=== PATIENT | male | born 1945 | race Caucasian/White ===

== ENCOUNTER 2022-12-05 08:43 | Emergency (ER) | payer OTHER ==
[~2022-12-05] VITALS: Ht 177.8 cm; Wt 83.9 kg
[2022-12-05 08:43] VITALS: BP_SYST 158; PULSE 86; RESP 18; TEMP 98.1; O2SAT 98
[2022-12-05 10:02] VITALS: BP_SYST 158; PULSE 74; RESP 16; TEMP 97.7; O2SAT 97
== END 2022-12-05 10:00 | disposition home or self-care (01) ==
LOC: SED 08:43
DX: R60.0 Localized edema (principal); I10 Essential (primary) hypertension; Z79.899 Other long term (current) drug therapy
CPT/HCPCS: 99281

== ENCOUNTER 2023-03-03 08:00 | Outpatient (CLI) | payer OTHER | END 2023-03-03 16:45 | disposition home or self-care (01) | LOC: SLB 08:00 → EDSTATUS 03-11 09:00 | PROVIDERS: ATTEND Surgery | DX: Z01.818 Encounter for other preprocedural examination (principal); C48.0 Malignant neoplasm of retroperitoneum; R94.31 Abnormal electrocardiogram [ECG] [EKG] | CPT/HCPCS: 87081; 93005 ==

== ENCOUNTER 2023-03-25 09:58 | Day surgery (SDC) | payer OTHER ==
[~2023-03-25] VITALS: Ht 177.8 cm; Wt 79.4 kg
[~2023-03-25 09:58] MED LIST: CEFAZOLIN SOD 2 GM in D5W 50 ML IV ONE
[2023-03-25] MEDS ORDERED: MIDAZOLAM HCL 2 MG/2 ML VIAL (VERSED) ONE (11:25)
[2023-03-25] MEDS ORDERED: fentaNYL CITRATE/PF 100 MCG/2 ML AMP ONE (11:25)
[2023-03-25] MEDS ORDERED: LIDOCAINE 1% 10 MG/ML, 20 ML MDV ONE (12:10)
[2023-03-25] MEDS ORDERED: NS 1000 ML IV.SOLN IV ONE (12:10)
[2023-03-25] MEDS ORDERED: NS 50 ML BAG IV ONE (12:10)
[2023-03-25] MEDS ORDERED: NALOXONE HCL 0.4 MG/ML AMP (NARCAN) IVP PRN (13:15)
[2023-03-25] MEDS ORDERED: ONDANSETRON HCL 4 MG/2 ML VIAL IVP PRN ×2 (13:15→14:15)
[2023-03-25] MEDS ORDERED: hydrALAZINE HCL 20 MG/ML VIAL IV PRN (13:15)
[2023-03-25] MEDS ORDERED: HYDROmorphone 1 MG/ML INJ. CARTRIDGE IVP PRN ×3 (13:15)
[2023-03-25] MEDS ORDERED: ACET1TAB93 PO (14:13)
[2023-03-25] MEDS ORDERED: MORPHINE 4 MG INJ. 4 MG/ML VIAL IVP PRN (14:15)
[2023-03-25] MEDS ORDERED: HYDROcodone/ACETAMIN 5-325 MG TAB (NORCO/ VICODIN) PO PRN (14:15)
[2023-03-25 19:08] VITALS: O2SAT 100
[2023-03-25 19:57] VITALS: BP_SYST 115; PULSE 69; RESP 16
== END 2023-03-25 16:20 | disposition home or self-care (01) ==
LOC: SMU 09:58 → SDS 09:58
PROVIDERS: ATTEND Surgery
DX: C48.0 Malignant neoplasm of retroperitoneum (principal); I25.10 Atherosclerotic heart disease of native coronary artery without angina pectoris; I10 Essential (primary) hypertension; K21.9 Gastro-esophageal reflux disease without esophagitis; E78.5 Hyperlipidemia, unspecified; Z95.1 Presence of aortocoronary bypass graft; Z79.899 Other long term (current) drug therapy
CPT/HCPCS: 36561; 71045; 77001; 76937; J0690; J2001; J3465; J3010; J7060; J7030; C1788; 76000

== ENCOUNTER 2023-05-10 13:57 | Emergency (ER) | payer OTHER ==
[~2023-05-10] VITALS: Ht 177.8 cm; Wt 83.9 kg
[2023-05-10 14:09] VITALS: BP_SYST 106; PULSE 78; RESP 18; TEMP 98.1; O2SAT 98
[2023-05-10 15:04] LABS: HEMATOCRIT 33.1 % (36-54); HEMOGLOBIN 11.5 g/dL (14.0-18.0); MEAN CORPUSCULAR HEMOGLOBIN 34 pg (27-31); MEAN CORPUSCULAR HGB CONC 35 % (32-36); MEAN CORPUSCULAR VOLUME 98 fL (79.0-98.0); RED BLOOD CELL COUNT(AUTO) 3.36 MIL/uL (4.2-6.2); RED CELL DISTRIBUTION WIDTH 18.6 % (9.0-15.0); WHITE BLOOD COUNT (AUTO) 10.2 K/uL (4.8-10.8)
[2023-05-10 15:14] LABS: ANION GAP 8 (5-15); CALCIUM 9.2 mg/dL (8.4-11.0); CARBON DIOXIDE 29 mmol/L (23-29); CHLORIDE 106 mmol/L (98-107); CREATININE 1.52 mg/dL (0.55-1.30); GLUCOSE 102 mg/dL (74-106); SODIUM SERUM 143 mmol/L (136-145); UREA NITROGEN, BLOOD 15 mg/dL (8-21)
[2023-05-10 15:22] LABS: PROTHROMBIN TIME 9.9 SECS (9.5-12.5)
[2023-05-10 15:25] LABS: PLATELET COUNT (AUTO) 84 K/uL (130-430)
[2023-05-10 15:26] LABS: ANISOCYTOSIS 1+; ATYPICAL LYMPHOCYTES % 18 % (0-0); BAND % (MANUAL) 0 % (0-6); BASOPHILS % (MANUAL) 0 % (0-2); EOSINOPHILS % (MANUAL) 1 % (0-7); LYMPHOCYTES % (MANUAL) 34 % (20-46); MONOCYTES % (MANUAL) 6 % (0-11); PLATELET ESTIMATE DECREASED (ADEQUATE)
[2023-05-10 15:29] LABS: ALANINE AMINOTRANSFERASE 29 U/L (12-78); ALBUMIN 3.9 g/dL (3.4-4.8); AMYLASE 39 U/L (0-100); ASPARTATE AMINOTRANSFERASE 18 U/L (10-37); BILIRUBIN,DIRECT 0.2 mg/dL (0.0-0.3); LIPASE 24 U/L (16-77); TOTAL BILIRUBIN 0.8 mg/dL (0.0-1.0); TOTAL PROTEIN, SERUM 7.1 g/dL (6.4-8.3)
[2023-05-10 15:30] LABS: BILIRUBIN,URINE 2+ (NEGATIVE); BLOOD, URINE 3+ (NEGATIVE); CLARITY/URINE CLOUDY (CLEAR); COLOR,URINE BROWN (YELLOW); GLUCOSE,URINE NEGATIVE (NEGATIVE); KETONES,URINE TRACE (NEGATIVE); LEUKOCYTE ESTERASE ,URINE TRACE (NEGATIVE); NITRITE, URINE NEGATIVE (NEGATIVE); PH,URINE 6.5 (5.0-8.0); PROTEIN URINE 2+ (NEGATIVE)
[2023-05-10 15:42] LABS: RBC,URINE >100 /HPF (0-3); WBC,URINE >100 /HPF (0-3)
[2023-05-10 15:43] LABS: BACTERIA,URINE FEW /HPF (None Seen)
[2023-05-10] MEDS ORDERED: NITR-85 PO (16:40)
[2023-05-10 17:00] VITALS: BP_SYST 106; PULSE 78; RESP 18; TEMP 98.1; O2SAT 98
== END 2023-05-10 17:00 | disposition home or self-care (01) ==
LOC: SED 13:57
DX: R31.9 Hematuria, unspecified (principal); I10 Essential (primary) hypertension; Z79.899 Other long term (current) drug therapy
CPT/HCPCS: 36415; 76376; 80048; 80076; 81000; 81001; 81015; 82150; 83605; 83690; 85007; 85027; 85610; 85730; 87086; 99284

== ENCOUNTER 2023-05-14 12:51 | Emergency (ER) | payer OTHER ==
[~2023-05-14] VITALS: Ht 177.8 cm; Wt 83.9 kg
[~2023-05-14 12:51] MED LIST changes: -CEFAZOLIN SOD 2 GM in D5W 50 ML IV ONE; +NITR-85 PO
[2023-05-14 13:01] VITALS: BP_SYST 131; PULSE 86; RESP 18; TEMP 98.2; O2SAT 98
[2023-05-14 16:28] LABS: BILIRUBIN,URINE NEGATIVE (NEGATIVE); BLOOD, URINE 2+ (NEGATIVE); CLARITY/URINE CLEAR (CLEAR); COLOR,URINE YELLOW (YELLOW); GLUCOSE,URINE NEGATIVE (NEGATIVE); KETONES,URINE NEGATIVE (NEGATIVE); LEUKOCYTE ESTERASE ,URINE NEGATIVE (NEGATIVE); NITRITE, URINE NEGATIVE (NEGATIVE); PROTEIN URINE NEGATIVE (NEGATIVE); UROBILINOGEN,URINE 0.2 (0.2-1.0)
[2023-05-14 16:35] LABS: BACTERIA,URINE RARE /HPF (None Seen); MUCUS,URINE None Seen /LPF (None Seen); RBC,URINE 0-3 /HPF (0-3); WBC,URINE 0-3 /HPF (0-3)
[2023-05-14 16:44] LABS: ANION GAP 9 (5-15); CALCIUM 9.4 mg/dL (8.4-11.0); CARBON DIOXIDE 28 mmol/L (23-29); CHLORIDE 104 mmol/L (98-107); CREATININE 1.21 mg/dL (0.55-1.30); GLUCOSE 85 mg/dL (74-106); POTASSIUM 4.2 mmol/L (3.5-5.1); SODIUM SERUM 141 mmol/L (136-145); UREA NITROGEN, BLOOD 13 mg/dL (8-21)
[2023-05-14 16:48] LABS: ALANINE AMINOTRANSFERASE 33 U/L (12-78); ALBUMIN 4.1 g/dL (3.4-4.8); ASPARTATE AMINOTRANSFERASE 23 U/L (10-37); BILIRUBIN,DIRECT 0.2 mg/dL (0.0-0.3); TOTAL BILIRUBIN 0.8 mg/dL (0.0-1.0); TOTAL PROTEIN, SERUM 7.4 g/dL (6.4-8.3)
[2023-05-14 17:48] LABS: BASOPHILS % (AUTO) 0.5 % (0.0-2.0); EOSINOPHILS # (AUTO) 0.1 K/uL (0.0-0.4); EOSINOPHILS % (AUTO) 1.1 % (0.0-4.0); HEMATOCRIT 33.4 % (36-54); HEMOGLOBIN 11.8 g/dL (14.0-18.0); LYMPHOCYTES # (AUTO) 5.6 K/uL (1.0-5.5); LYMPHOCYTES % (AUTO) 54.3 % (20.5-51.5); MEAN CORPUSCULAR HEMOGLOBIN 35 pg (27-31); MEAN CORPUSCULAR HGB CONC 35 % (32-36); MEAN CORPUSCULAR VOLUME 99 fL (79.0-98.0); MONOCYTES # (AUTO) 0.7 K/uL (0.0-1.0); MONOCYTES % (AUTO) 6.7 % (1.7-9.3); NEUTROPHILS # (AUTO) 3.9 K/uL (1.8-7.7); NEUTROPHILS % (AUTO) 37.4 % (40.0-70.0); PLATELET COUNT (AUTO) 106 K/uL (130-430); RED BLOOD CELL COUNT(AUTO) 3.39 MIL/uL (4.2-6.2); RED CELL DISTRIBUTION WIDTH 17.6 % (9.0-15.0); WHITE BLOOD COUNT (AUTO) 10.4 K/uL (4.8-10.8)
[2023-05-14 18:44] VITALS: BP_SYST 138; PULSE 78; RESP 18; TEMP 98.2; O2SAT 98
== END 2023-05-14 18:44 | disposition home or self-care (01) ==
LOC: SED 12:51
DX: R31.9 Hematuria, unspecified (principal); I10 Essential (primary) hypertension; Z79.899 Other long term (current) drug therapy
CPT/HCPCS: 36415; 80048; 80076; 81000; 81001; 81015; 85025; 99283

== ENCOUNTER 2023-07-18 18:28 | Inpatient (IN) | payer OTHER ==
[~2023-07-18] VITALS: Ht 177.8 cm; Wt 82.1 kg
[2023-07-18 18:30] VITALS: BP_SYST 137; PULSE 131; RESP 18; TEMP 97.8; O2SAT 94
[2023-07-18 19:23] LABS: BASOPHILS % (AUTO) 0.3 % (0.0-2.0); EOSINOPHILS # (AUTO) 0.1 K/uL (0.0-0.4); EOSINOPHILS % (AUTO) 0.5 % (0.0-4.0); HEMATOCRIT 40.2 % (36-54); LYMPHOCYTES # (AUTO) 4.8 K/uL (1.0-5.5); LYMPHOCYTES % (AUTO) 40.3 % (20.5-51.5); MEAN CORPUSCULAR HEMOGLOBIN 32 pg (27-31); MEAN CORPUSCULAR HGB CONC 35 % (32-36); MEAN CORPUSCULAR VOLUME 92 fL (79.0-98.0); MONOCYTES # (AUTO) 0.3 K/uL (0.0-1.0); MONOCYTES % (AUTO) 2.2 % (1.7-9.3); NEUTROPHILS # (AUTO) 6.8 K/uL (1.8-7.7); NEUTROPHILS % (AUTO) 56.7 % (40.0-70.0); PLATELET COUNT (AUTO) 132 K/uL (130-430); RED BLOOD CELL COUNT(AUTO) 4.36 MIL/uL (4.2-6.2); RED CELL DISTRIBUTION WIDTH 13.3 % (9.0-15.0)
[2023-07-18] MEDS: NACL 0.9% 1,000 ML IV ONE ×2 (19:27→23:04)
[2023-07-18 19:54] LABS: ANION GAP 13 (5-15); CALCIUM 9.6 mg/dL (8.4-11.0); CARBON DIOXIDE 23 mmol/L (23-29); CHLORIDE 103 mmol/L (98-107); CREATININE 1.44 mg/dL (0.55-1.30); GLUCOSE 112 mg/dL (74-106); POTASSIUM 4.4 mmol/L (3.5-5.1); SODIUM SERUM 139 mmol/L (136-145); UREA NITROGEN, BLOOD 26 mg/dL (8-21)
[2023-07-18 19:58] LABS: PROTHROMBIN TIME 10.7 SECS (9.5-12.5)
[2023-07-18 20:01] LABS: ALANINE AMINOTRANSFERASE 20 U/L (12-78); ALBUMIN 4.5 g/dL (3.4-4.8); ASPARTATE AMINOTRANSFERASE 25 U/L (10-37); BILIRUBIN,DIRECT 0.4 mg/dL (0.0-0.3); TOTAL BILIRUBIN 1.8 mg/dL (0.0-1.0); TOTAL PROTEIN, SERUM 8.3 g/dL (6.4-8.3)
[2023-07-18] MEDS: ONDANSETRON HCL 4 MG/2 ML VIAL IVP ONE (20:18)
[2023-07-18] MEDS ORDERED: cefTRIAXone 1 GM VIAL ONE (20:54)
[2023-07-18] MEDS ORDERED: AZITHROMYCIN 500 MG/VIAL (ZITHROMAX) IV ONE (20:54)
[2023-07-18] MEDS: cefTRIAXone 1 GM in D5W 50 ML IV ONE (20:59)
[2023-07-18] MEDS: AZITHROMYCIN 500 MG in NS 250 ML IV ONE (21:12)
[2023-07-18] MEDS ORDERED: MORPHINE 2 MG/ML INJ. SYRINGE IVP PRN (21:15)
[2023-07-18] MEDS ORDERED: ACETAMINOPHEN 325 MG TABLET PO PRN (21:15)
[2023-07-18] MEDS ORDERED: ONDANSETRON HCL 4 MG/2 ML VIAL IVP PRN (21:15)
[2023-07-18] MEDS ORDERED: IPRATROPIUM BROM 0.5 MG/2.5 ML VIAL.NEB (ATROVENT) INH PRN (21:15)
[2023-07-18] MEDS ORDERED: HYDROcodone/ACETAMIN 5-325 MG TAB (NORCO/ VICODIN) PO PRN (21:15)
[2023-07-18] MEDS ORDERED: HYDROcodone/ACETAMIN 10-325 MG TAB PO PRN (21:15)
[2023-07-18 23:53] LABS: BILIRUBIN,URINE 1+ (NEGATIVE); BLOOD, URINE 3+ (NEGATIVE); CLARITY/URINE SL CLOUDY (CLEAR); COLOR,URINE YELLOW (YELLOW); GLUCOSE,URINE NEGATIVE (NEGATIVE); KETONES,URINE 2+ (NEGATIVE); LEUKOCYTE ESTERASE ,URINE NEGATIVE (NEGATIVE); NITRITE, URINE NEGATIVE (NEGATIVE); PROTEIN URINE 1+ (NEGATIVE); UROBILINOGEN,URINE 0.2 (0.2-1.0)
[2023-07-19 00:13] LABS: RBC,URINE 20-50 /HPF (0-3)
[2023-07-19 00:19] LABS: BACTERIA,URINE RARE /HPF (None Seen); WBC,URINE 0-3 /HPF (0-3)
[2023-07-19] MEDS ORDERED: ATORVASTATIN 20 MG TABLET PO SCH (00:45)
[2023-07-19] MEDS: ASPIRIN 81 MG TAB.CHEW PO ONE (01:28)
[2023-07-19] MEDS ORDERED: CLOPIDOGREL BISULFATE 75 MG TABLET PO ONE (01:45)
[2023-07-19] MEDS ORDERED: METO25TA6 PO (01:47)
[2023-07-19] MEDS ORDERED: ATOR40TA68 PO (01:47)
[2023-07-19] MEDS ORDERED: MEGE20TA3 (01:47)
[2023-07-19] MEDS ORDERED: BACL10TA PO (01:47)
[2023-07-19] MEDS ORDERED: TAMS0.4C96 PO (01:47)
[2023-07-19] MEDS ORDERED: EZET10TA30 PO (01:47)
[2023-07-19] MEDS ORDERED: iohexoL 350 mgI/mL, 100 ML INFUS..BTL IV ONE (02:07)
[2023-07-19 07:41] LABS: BASOPHILS % (AUTO) 0.2 % (0.0-2.0); EOSINOPHILS % (AUTO) 0.1 % (0.0-4.0); HEMATOCRIT 40.6 % (36-54); LYMPHOCYTES # (AUTO) 3.4 K/uL (1.0-5.5); LYMPHOCYTES % (AUTO) 27.5 % (20.5-51.5); MEAN CORPUSCULAR HEMOGLOBIN 33 pg (27-31); MEAN CORPUSCULAR HGB CONC 35 % (32-36); MEAN CORPUSCULAR VOLUME 94 fL (79.0-98.0); MONOCYTES # (AUTO) 0.3 K/uL (0.0-1.0); MONOCYTES % (AUTO) 2.4 % (1.7-9.3); NEUTROPHILS # (AUTO) 8.5 K/uL (1.8-7.7); NEUTROPHILS % (AUTO) 69.8 % (40.0-70.0); PLATELET COUNT (AUTO) 103 K/uL (130-430); RED CELL DISTRIBUTION WIDTH 13.3 % (9.0-15.0); WHITE BLOOD COUNT (AUTO) 12.2 K/uL (4.8-10.8)
[2023-07-19 08:17] LABS: ALANINE AMINOTRANSFERASE 24 U/L (12-78); ALBUMIN 4.3 g/dL (3.4-4.8); ANION GAP 13 (5-15); ASPARTATE AMINOTRANSFERASE 28 U/L (10-37); CALCIUM 9.6 mg/dL (8.4-11.0); CARBON DIOXIDE 23 mmol/L (23-29); CHLORIDE 104 mmol/L (98-107); CREATININE 1.21 mg/dL (0.55-1.30); GLUCOSE 94 mg/dL (74-106); POTASSIUM 4.5 mmol/L (3.5-5.1); SODIUM SERUM 140 mmol/L (136-145); TOTAL BILIRUBIN 1.5 mg/dL (0.0-1.0); TOTAL PROTEIN, SERUM 8.1 g/dL (6.4-8.3); UREA NITROGEN, BLOOD 24 mg/dL (8-21)
[2023-07-19] MEDS ORDERED: AZITHROMYCIN 500 MG in NS 250 ML IV SCH (09:00)
[2023-07-19] MEDS ORDERED: cefTRIAXone 1 GM in D5W 50 ML IV SCH (09:00)
[2023-07-19 10:23] VITALS: BP_SYST 156; PULSE 118; RESP 16; TEMP 97.5; O2SAT 94
[2023-07-19 10:36] VITALS: BP_SYST 151; PULSE 118; RESP 16; TEMP 97.5; O2SAT 94
[2023-07-19] MEDS: 0.45% NS 500 ML IV ONE (11:15)
[2023-07-19 11:37] VITALS: BP_SYST 151; PULSE 89; RESP 15; TEMP 97.1; O2SAT 93
[2023-07-19] MEDS ORDERED: DIATR MEGLU/DIATRIZ SOD 30 ML SOLUTION PO ONE (11:40)
[2023-07-19] MEDS: ONDANSETRON HCL 4 MG/2 ML VIAL IVP PRN (11:41)
[2023-07-19] MEDS: PANTOPRAZOLE SODIUM 40 MG/VIAL (PROTONIX) IVP ONE (11:43)
[2023-07-19 15:26] VITALS: BP_SYST 126; PULSE 113; RESP 16; TEMP 98; O2SAT 94
[2023-07-19 20:00] VITALS: BP_SYST 136; PULSE 97; RESP 17; TEMP 98.5; O2SAT 98
[2023-07-19] MEDS: PANTOPRAZOLE SODIUM 40 MG/VIAL (PROTONIX) IVP SCH (20:47)
[2023-07-19] MEDS: CEFTRIAXONE SOD 1 GM/ D5W 50 ML IV SCH (20:48)
[2023-07-19] MEDS: AZITHROMYCIN 500 MG in NS 250 ML IV SCH (22:25)
[2023-07-20] VITALS: BP_SYST 129; PULSE 95; RESP 16; TEMP 98.2; O2SAT 97
[2023-07-20 07:00] LABS: BASOPHILS % (AUTO) 0.2 % (0.0-2.0); EOSINOPHILS # (AUTO) 0.1 K/uL (0.0-0.4); EOSINOPHILS % (AUTO) 1.1 % (0.0-4.0); HEMATOCRIT 35.7 % (36-54); HEMOGLOBIN 12.4 g/dL (14.0-18.0); LYMPHOCYTES # (AUTO) 4.9 K/uL (1.0-5.5); LYMPHOCYTES % (AUTO) 38.8 % (20.5-51.5); MEAN CORPUSCULAR HEMOGLOBIN 32 pg (27-31); MEAN CORPUSCULAR HGB CONC 35 % (32-36); MEAN CORPUSCULAR VOLUME 93 fL (79.0-98.0); MONOCYTES # (AUTO) 0.3 K/uL (0.0-1.0); MONOCYTES % (AUTO) 2.4 % (1.7-9.3); NEUTROPHILS # (AUTO) 7.3 K/uL (1.8-7.7); NEUTROPHILS % (AUTO) 57.5 % (40.0-70.0); PLATELET COUNT (AUTO) 100 K/uL (130-430); RED BLOOD CELL COUNT(AUTO) 3.83 MIL/uL (4.2-6.2); RED CELL DISTRIBUTION WIDTH 13.4 % (9.0-15.0); WHITE BLOOD COUNT (AUTO) 12.6 K/uL (4.8-10.8)
[2023-07-20 08:25] VITALS: BP_SYST 147; PULSE 94; RESP 20; TEMP 98; O2SAT 100
[2023-07-20 08:55] LABS: CHLORIDE 106 mmol/L (98-107); POTASSIUM 4.2 mmol/L (3.5-5.1); SODIUM SERUM 141 mmol/L (136-145)
[2023-07-20 08:56] LABS: ANION GAP 10 (5-15); CALCIUM 8.7 mg/dL (8.4-11.0); CARBON DIOXIDE 25 mmol/L (23-29); GLUCOSE 89 mg/dL (74-106); UREA NITROGEN, BLOOD 25 mg/dL (8-21)
[2023-07-20 09:30] VITALS: O2SAT 100
[2023-07-20] MEDS: 0.45% NS 1,000 ML IV SCH (10:30)
[2023-07-20 11:07] VITALS: BP_SYST 125; PULSE 94; RESP 16; TEMP 97.1; O2SAT 97
[2023-07-20 15:24] VITALS: BP_SYST 147; PULSE 91; RESP 17; TEMP 96.9; O2SAT 97
[2023-07-20 20:00] VITALS: BP_SYST 146; PULSE 92; RESP 16; TEMP 98.7; O2SAT 98
[2023-07-20] MEDS: METOCLOPRAMIDE HCL 10 MG/2 ML VIAL IVP SCH (20:59)
[2023-07-21] VITALS: BP_SYST 143; PULSE 90; RESP 16; TEMP 97.9; O2SAT 97
[2023-07-21 05:27] LABS: ANION GAP 9 (5-15); CALCIUM 8.2 mg/dL (8.4-11.0); CARBON DIOXIDE 26 mmol/L (23-29); CHLORIDE 105 mmol/L (98-107); CREATININE 0.96 mg/dL (0.55-1.30); GLUCOSE 79 mg/dL (74-106); POTASSIUM 3.8 mmol/L (3.5-5.1); SODIUM SERUM 140 mmol/L (136-145); UREA NITROGEN, BLOOD 20 mg/dL (8-21)
[2023-07-21 05:43] LABS: BASOPHILS % (AUTO) 0.3 % (0.0-2.0); EOSINOPHILS # (AUTO) 0.2 K/uL (0.0-0.4); HEMATOCRIT 31.2 % (36-54); LYMPHOCYTES # (AUTO) 4.4 K/uL (1.0-5.5); LYMPHOCYTES % (AUTO) 46.8 % (20.5-51.5); MEAN CORPUSCULAR HEMOGLOBIN 33 pg (27-31); MEAN CORPUSCULAR HGB CONC 35 % (32-36); MEAN CORPUSCULAR VOLUME 94 fL (79.0-98.0); MONOCYTES # (AUTO) 0.3 K/uL (0.0-1.0); MONOCYTES % (AUTO) 2.8 % (1.7-9.3); NEUTROPHILS # (AUTO) 4.5 K/uL (1.8-7.7); NEUTROPHILS % (AUTO) 48.1 % (40.0-70.0); PLATELET COUNT (AUTO) 76 K/uL (130-430); RED BLOOD CELL COUNT(AUTO) 3.34 MIL/uL (4.2-6.2); RED CELL DISTRIBUTION WIDTH 13.3 % (9.0-15.0); WHITE BLOOD COUNT (AUTO) 9.4 K/uL (4.8-10.8)
[2023-07-21 08:00] VITALS: BP_SYST 142; PULSE 84; RESP 20; TEMP 97.8; O2SAT 99
[2023-07-21 09:30] VITALS: O2SAT 98
[2023-07-21 11:16] VITALS: BP_SYST 130; PULSE 89; RESP 16; TEMP 98.6; O2SAT 98
[2023-07-21 15:13] VITALS: BP_SYST 132; PULSE 95; RESP 15; TEMP 97.7; O2SAT 96
[2023-07-21 18:13] LABS: TOTAL IRON BIND. CAPACITY 205 ug/dL (250-450)
[2023-07-21 18:21] LABS: BILIRUBIN,URINE NEGATIVE (NEGATIVE); BLOOD, URINE 3+ (NEGATIVE); COLOR,URINE YELLOW (YELLOW); GLUCOSE,URINE NEGATIVE (NEGATIVE); KETONES,URINE 2+ (NEGATIVE); LEUKOCYTE ESTERASE ,URINE NEGATIVE (NEGATIVE); NITRITE, URINE NEGATIVE (NEGATIVE); PROTEIN URINE 1+ (NEGATIVE)
[2023-07-21 18:33] LABS: CLARITY/URINE HAZY (CLEAR)
[2023-07-21 19:09] LABS: BACTERIA,URINE FEW /HPF (None Seen); MUCUS,URINE 1+ /LPF (None Seen); RBC,URINE 50-80 /HPF (0-3)
[2023-07-21 21:40] VITALS: BP_SYST 114; PULSE 99; RESP 18; TEMP 97.7; O2SAT 97
[2023-07-21] MEDS: MIRTAZAPINE 15 MG TABLET PO SCH (21:53)
[2023-07-22 01:03] VITALS: BP_SYST 140; PULSE 96; RESP 18; TEMP 97.8; O2SAT 98
[2023-07-22 06:31] LABS: ANION GAP 10 (5-15); CALCIUM 8.2 mg/dL (8.4-11.0); CARBON DIOXIDE 25 mmol/L (23-29); CHLORIDE 104 mmol/L (98-107); CREATININE 1.06 mg/dL (0.55-1.30); GLUCOSE 80 mg/dL (74-106); POTASSIUM 3.5 mmol/L (3.5-5.1); SODIUM SERUM 139 mmol/L (136-145); UREA NITROGEN, BLOOD 18 mg/dL (8-21)
[2023-07-22 06:45] LABS: BASOPHILS % (AUTO) 0.4 % (0.0-2.0); EOSINOPHILS # (AUTO) 0.1 K/uL (0.0-0.4); EOSINOPHILS % (AUTO) 1.8 % (0.0-4.0); HEMATOCRIT 30.7 % (36-54); LYMPHOCYTES # (AUTO) 4.1 K/uL (1.0-5.5); LYMPHOCYTES % (AUTO) 54.3 % (20.5-51.5); MEAN CORPUSCULAR HEMOGLOBIN 33 pg (27-31); MEAN CORPUSCULAR HGB CONC 36 % (32-36); MEAN CORPUSCULAR VOLUME 92 fL (79.0-98.0); MONOCYTES # (AUTO) 0.3 K/uL (0.0-1.0); MONOCYTES % (AUTO) 3.8 % (1.7-9.3); NEUTROPHILS % (AUTO) 39.7 % (40.0-70.0); PLATELET COUNT (AUTO) 73 K/uL (130-430); RED BLOOD CELL COUNT(AUTO) 3.35 MIL/uL (4.2-6.2); WHITE BLOOD COUNT (AUTO) 7.5 K/uL (4.8-10.8)
[2023-07-22 08:00] VITALS: O2SAT 98
[2023-07-22 11:07] VITALS: BP_SYST 151; PULSE 91; RESP 15; TEMP 97.4; O2SAT 99
[2023-07-22] MEDS ORDERED: CEPH250C PO (14:32)
[2023-07-22] MEDS ORDERED: PRO40 PO (14:32)
[2023-07-22 15:03] VITALS: BP_SYST 157; PULSE 96; RESP 16; TEMP 98.2; O2SAT 99
[2023-07-22 20:00] VITALS: O2SAT 97
[2023-07-22 20:14] VITALS: BP_SYST 151; PULSE 97; RESP 18; TEMP 97.4; O2SAT 97
[2023-07-23 00:10] VITALS: BP_SYST 135; PULSE 90; RESP 18; TEMP 97.4; O2SAT 97
[2023-07-23 06:39] LABS: BASOPHILS % (AUTO) 0.4 % (0.0-2.0); EOSINOPHILS # (AUTO) 0.1 K/uL (0.0-0.4); EOSINOPHILS % (AUTO) 1.4 % (0.0-4.0); HEMATOCRIT 31.6 % (36-54); HEMOGLOBIN 11.2 g/dL (14.0-18.0); LYMPHOCYTES # (AUTO) 4.6 K/uL (1.0-5.5); LYMPHOCYTES % (AUTO) 51.1 % (20.5-51.5); MEAN CORPUSCULAR HEMOGLOBIN 33 pg (27-31); MEAN CORPUSCULAR HGB CONC 35 % (32-36); MEAN CORPUSCULAR VOLUME 92 fL (79.0-98.0); MONOCYTES # (AUTO) 0.4 K/uL (0.0-1.0); NEUTROPHILS # (AUTO) 3.9 K/uL (1.8-7.7); NEUTROPHILS % (AUTO) 43.1 % (40.0-70.0); PLATELET COUNT (AUTO) 110 K/uL (130-430); RED BLOOD CELL COUNT(AUTO) 3.42 MIL/uL (4.2-6.2); RED CELL DISTRIBUTION WIDTH 13.2 % (9.0-15.0)
[2023-07-23 08:00] VITALS: BP_SYST 141; PULSE 93; RESP 20; TEMP 98.1; O2SAT 97
[2023-07-23] MEDS: FLUCONAZOLE 100 MG TABLET (DIFLUCAN) PO SCH (09:00)
[2023-07-23 11:10] VITALS: O2SAT 97
[2023-07-23 11:25] VITALS: BP_SYST 130; PULSE 90; RESP 16; TEMP 97.7; O2SAT 99
[2023-07-23 12:41] VITALS: BP_SYST 130; PULSE 91; RESP 16; TEMP 97.7; O2SAT 99
== END 2023-07-23 13:05 | disposition home health service (06) | DRG 871 ==
LOC: SED 18:28 → STU 21:13 → SMU 07-23 08:12
PROVIDERS: ADMIT Family Medicine; ATTEND Family Medicine
DX: A41.9 Sepsis, unspecified organism (principal); J18.9 Pneumonia, unspecified organism; N17.0 Acute kidney failure with tubular necrosis; C7A.8 Other malignant neuroendocrine tumors; R11.2 Nausea with vomiting, unspecified; E86.0 Dehydration; E78.5 Hyperlipidemia, unspecified; I10 Essential (primary) hypertension; D69.59 Other secondary thrombocytopenia; D64.9 Anemia, unspecified; N40.0 Benign prostatic hyperplasia without lower urinary tract symptoms; T45.1X5A Adverse effect of antineoplastic and immunosuppressive drugs, initial encounter; Y92.89 Other specified places as the place of occurrence of the external cause; Z79.899 Other long term (current) drug therapy
CPT/HCPCS: 36415; 70450-TC; 70496; 70498; 70551; 71045; 74018; 80048; 80053; 80076; 81000; 81001; 81015; 83540; 83550; 83605; 84484; 85025; 85610; 85730; 87040; 87086; 92610-GN; 93005; 97110-GP; 97116-GP; 97163-GP; 97530-GP; 99285; C9113; G0378; J0456; J0696; J2405; J2765; J7050; J7060; Q9964; Q9967